=== PATIENT | female | born 1980 | race Caucasian/White ===

== ENCOUNTER 2020-06-08 16:17 | Emergency (ER) | payer OTHER, SELFPAY ==
[2020-06-08 16:35] VITALS: BP 132/89; PULSE 82; RESP 20; TEMP 36.7; O2SAT 100
--- NOTE | 2020-06-08 16:37 | ED.GENADULT ---
HPI - General Adult General Chief complaint: Animal Bite Stated complaint: dog bite Time Seen by Provider: 06/08/20 16:37 Source: patient and RN notes reviewed Mode of arrival: ambulatory Limitations: no limitations History of Present Illness HPI narrative: 39-year-old female presents with complaints of dog bite ([place]) to RT upper arm with ecchymosis, swelling, discomfort, and bloody drainage. prior to [facility] arrival today. No treatment. Several puncture wounds and a mild abrasion with discomfort, swelling, and redness. Radha says she was out visiting one of her neighbors when another one allowed their dog out that attacked hour (brown and white female dog). Denies tingling or numbness. Denies immobility. No exacerbating factors. No relieving factors. Denies altered sensation, back pain, neck pain, and suspected foreign body. Denies falling, hitting head, or loss of consciousness. Remains active. Tetanus vaccine up-to-date. Familiar with dog and transitional care nurse says shoots are up to date per transitional care nurse when she spoke with prior to arrival. LMP, today which is irregular due to IUD control. The patient reports she have not been diagnosed with COVID-19. The patient reports she is not waiting for the results of a COVID-19 lab test. The patient reports she do not have fever, chills, weakness, fatigue, or myalgia. The patient reports she do not have a new or worsening cough or shortness of breath. Denies chest pain. The patient reports she do not have any rhinorrhea, congestion, sore throat, nausea, vomiting, abdominal pain, and diarrhea. Tolerating po intake well. Denies recent traveling. Denies concerns for COVID-19 or exposures been home with limited outdoor exposure except for essential household needs, work, and return home. At this time, patient is not suspected of having COVID-19. Some parts of this dictation were generated by voice recognition software and may contain typographical and/or grammatical inaccuracies. Related Data Allergies Allergy/AdvReac Type Severity Reaction Status Date / Time pistachio nut Allergy Unknown Verified 09/16/18 12:23 Review of Systems Review of Systems: Narrative: CONSTITUTIONAL: Denies fever, chills, sweats. EYES: Denies visual changes, redness, discharge. ENT: Denies rhinorrhea, congestion, sore throat, otalgia. CARDIOVASCULAR: Denies chest pain, palpitations, edema. RESPIRATORY: Denies dyspnea, wheezing, cough. GASTROINTESTINAL: Denies abdominal pain, nausea, vomiting, diarrhea. GENITOURINARY: Denies dysuria, hematuria, abnormal discharge. SKIN: Denies rash or itching. Complains of a dog bite to RT upper arm with several puncture wounds and mild abrasion, ecchymosis, swelling, discomfort, and bloody drainage. MUSCULOSKELETAL: Denies acute back pain, joint pain, or myalgia. NEUROLOGIC: Denies numbness or focal weakness. PSYCHIATRIC: Denies anxiety or depression. All other systems reviewed are negative, except as documented in HPI and below. [facility] Past Medical History Medical History (Updated 06/09/20 @ 00:00 by Claudio Alberts) delivery delivered Preeclampsia with her 2016 Surgical History Surgical History (Updated 06/08/20 @ 17:07 by ROSINA Landers) H/O section History of loop electrosurgical excision procedure (LEEP) Family History Family History (Updated 06/08/20 @ 17:07 by ROSINA Landers) Father Hypertension Family history of diabetes mellitus in first degree relative Sibling Patient's sister is in good health Mother Hypertension Social History Social History (Updated 06/08/20 @ 17:07 by ROSINA Landers) Smoking status: Never smoker Second hand tobacco smoke exposure: No Alcohol intake: current Substance use: current Substance use type: marijuana Living arrangements: with family Occupation/Education: occupation Gender identity (if verbalized by the patient): Female Sex
== END 2020-06-08 17:08 | disposition home or self-care (01) ==
PROVIDERS: Emergency Provider Nurse Practitioner Family; PCP Physician Assistant
DX: S41.151A Open bite of right upper arm, initial encounter (principal); W54.0XXA Bitten by dog, initial encounter
CPT/HCPCS: 99213; G0463

== ENCOUNTER 2021-03-22 10:15 | Outpatient (CLI) | payer OTHER, SELFPAY ==
[2021-03-22 07:40] LABS: Alanine Aminotransferase 13 U/L (4-35); Albumin Level 4.3 g/dL (3.5-5.1); Alkaline Phosphatase 44 U/L (38-126); Anion Gap 6 mmol/L (8-16); Aspartate Amino Transferase 21 U/L (14-36); Bilirubin,Total 0.1 mg/dL (0.2-1.3); Blood Urea Nitrogen 8 mg/dL (7-17); Carbon Dioxide 26 mmol/L (22-30); Chloride 108 mmol/L (98-107); Cholesterol 153 mg/dL (0-200); Estimated Glomerular Filt Rate > 60; Glucose 96 mg/dL (65-105); HDL Direct 60 mg/dL; Sodium 140 mmol/L (137-145); Triglycerides 67 mg/dL (<150)
[2021-03-22 07:51] LABS: LDL Cholesterol Direct 73 mg/dL
[2021-03-22 08:22] LABS: Hematocrit 35.3 % (37.0-47.0); Hemoglobin 11.4 g/dL (12.0-15.0); Mean Corpuscular HGB Conc 32.3 g/dl (32-36); Mean Corpuscular Hemoglobin 26.7 pg (26-34); Mean Corpuscular Volume 82.7 fl (80-100); Mean Platelet Volume 10.7 fl (7.4-10.4); Platelet Count Result 252 k/mm3 (150-375); Red Blood Count 4.27 M/mm3 (4.2-5.4); Red Cell Distribution Width 15.1 % (11.5-14.5); White Blood Count 4.8 K/mm3 (4.5-10.0)
[2021-03-22 08:48] LABS: Folic Acid > 20.0 ng/mL (2.76->20)
== END 2021-03-22 10:16 | disposition home or self-care (01) ==
PROVIDERS: PCP Internal Medicine; Visit Provider Physician Assistant
DX: Z00.00 Encounter for general adult medical examination without abnormal findings (principal)
CPT/HCPCS: 36415; 80053; 80061; 82607; 82746; 83540; 83550; 84443; 85027

== ENCOUNTER 2022-04-05 09:09 | Outpatient (CLI) | payer OTHER, SELFPAY ==
[2022-04-05 09:21] LABS: Hematocrit 42.6 % (37.0-47.0); Hemoglobin 13.9 g/dL (12.0-15.0); Mean Corpuscular HGB Conc 32.6 g/dl (32-36); Mean Corpuscular Hemoglobin 33.2 pg (26-34); Mean Corpuscular Volume 101.7 fl (80-100); Mean Platelet Volume 9.7 fl (7.4-10.4); Platelet Count Result 224 k/mm3 (150-375); Red Blood Count 4.19 M/mm3 (4.2-5.4); Red Cell Distribution Width 12.3 % (11.5-14.5); White Blood Count 4.2 K/mm3 (4.5-10.0)
[2022-04-05 09:53] LABS: Alanine Aminotransferase 14 U/L (6-35); Albumin Level 4.3 g/dL (3.5-5.1); Alkaline Phosphatase 48 U/L (38-126); Anion Gap 7 mmol/L (8-16); Aspartate Amino Transferase 23 U/L (14-36); Bilirubin,Total 0.5 mg/dL (0.2-1.3); Blood Urea Nitrogen 10 mg/dL (7-17); Calcium 8.8 mg/dL (8.4-10.2); Carbon Dioxide 24 mmol/L (22-30); Chloride 106 mmol/L (98-107); Cholesterol 164 mg/dL (0-200); Estimated Glomerular Filt Rate > 60; Glucose 91 mg/dL (65-110); HDL Direct 52 mg/dL; Potassium 4.3 mmol/L (3.4-5.0); Sodium 137 mmol/L (137-145); Triglycerides 67 mg/dL (<150)
[2022-04-05 10:03] LABS: LDL Cholesterol Direct 77 mg/dL
[2022-04-05 10:07] LABS: Iron 90 ug/dL (37-170)
[2022-04-05 10:20] LABS: Percent Iron Saturation 25 % (20-50)
[2022-04-05 11:02] LABS: Folic Acid > 20.0 ng/mL (2.76->20)
== END 2022-04-05 09:10 | disposition home or self-care (01) ==
LOC: ANHLAB 09:10
PROVIDERS: PCP Internal Medicine; Visit Provider Physician Assistant
DX: D64.9 Anemia, unspecified (principal); Z00.00 Encounter for general adult medical examination without abnormal findings
CPT/HCPCS: 36415; 80053; 80061; 82607; 82746; 83540; 83550; 84443; 85027

== ENCOUNTER 2023-04-09 07:06 | Outpatient (CLI) | payer OTHER, SELFPAY ==
[2023-04-09 07:55] LABS: Basophils Percent Auto 0.7 % (0.2-1.2); Eosinophils Absolute Auto 0.2 K/mm3 (0-0.3); Eosinophils Percent Auto 2.7 % (0-4.4); Hematocrit 40.9 % (37.0-47.0); Hemoglobin 13.9 g/dL (12.0-15.0); Immature Granulocyte Absolute 0.01 K/mm3 (0.00-0.031); Immature Granulocyte Percent A 0.2 % (0-0.5); Lymphocytes Absolute Auto 1.71 K/mm3 (0.9-3.2); Lymphocytes Percent Auto 31.3 % (18.3-44.2); Mean Corpuscular Hemoglobin 32.9 pg (26-34); Mean Corpuscular Volume 96.7 fl (80-100); Monocytes Absolute Auto 0.6 K/mm3 (0.1-0.6); Monocytes Percent Auto 10.8 % (2.6-8.5); Neutrophils Percent Auto 54.3 % (45.5-73.1); Platelet Count Result 230 k/mm3 (150-375); Red Blood Count 4.23 M/mm3 (4.2-5.4); Red Cell Distribution Width 12.6 % (11.5-14.5); White Blood Count 5.5 K/mm3 (4.5-10.0)
[2023-04-09 08:09] LABS: Alanine Aminotransferase 16 U/L (6-35); Albumin Level 4.1 g/dL (3.5-5.1); Alkaline Phosphatase 50 U/L (38-126); Anion Gap 6 mmol/L (8-16); Aspartate Amino Transferase 21 U/L (14-36); Bilirubin,Total 0.4 mg/dL (0.2-1.3); Blood Urea Nitrogen 9 mg/dL (7-17); Calcium 8.4 mg/dL (8.4-10.2); Carbon Dioxide 28 mmol/L (22-30); Chloride 103 mmol/L (98-107); Cholesterol 138 mg/dL (0-200); Estimated Glomerular Filt Rate > 60; Glucose 90 mg/dL (65-110); HDL Direct 43 mg/dL; Potassium 3.7 mmol/L (3.4-5.0); Sodium 137 mmol/L (137-145); Triglycerides 69 mg/dL (<150)
[2023-04-09 08:19] LABS: LDL Cholesterol Direct 73 mg/dL
[2023-04-09 09:10] LABS: Folic Acid 13.4 ng/mL (2.76->20)
== END 2023-04-09 07:07 | disposition home or self-care (01) ==
LOC: ANHLAB 07:07
PROVIDERS: PCP Physician Assistant; Visit Provider Physician Assistant
DX: Z00.00 Encounter for general adult medical examination without abnormal findings (principal)
CPT/HCPCS: 36415; 80053; 80061; 82607; 82746; 84443; 85025

== ENCOUNTER 2024-04-17 18:33 | Emergency (ER) | payer OTHER, SELFPAY ==
--- NOTE | 2024-04-17 18:35 | ED.SKABFB ---
HPI - Skin/Abscess/Foreign Bdy General Chief complaint: Skin/Abscess/Foreign Body Stated complaint: Tick Bite, Body Aches, Lethargic Time Seen by Provider: 04/17/24 18:34 Source: patient Mode of arrival: ambulatory Limitations: no limitations History of Present Illness HPI narrative: Ann is a 43-year-old female patient presenting to the clinic today with complaints of 2 tick to the left side that she noticed on Sunday. She did pull 1 tick off on Sunday. Is not aware of how long the ticks were in place but she does not think they were on longer 72 hours. Today she started experiencing fatigue, body aches, and feeling lethargic all day. Does not have an appetite. Is concerned that she may have an infection from the tick bite. Does report having a slight cough as well. No known fever or chills. Related Data Home Medications Medication Instructions Recorded Confirmed epinephrine 0.3 mg/0.3 mL 0.3 mg IM ONCE 04/06/20 04/17/24 injection, auto-injector (EpiPen 2-Ben) levonorgestrel 21 mcg/24 hr (up to 1 device intrauterine ONCE 04/06/20 04/17/24 8 years) 52 mg intrauterine device (Mirena) calcium carb,cit ER 600 mg-vit D3 2 tablet PO DAILY 04/17/24 04/17/24 12.5 mcg (500 unit) tablet,ext.rel (Citracal-D3 Slow Release) Allergies Allergy/AdvReac Type Severity Reaction Status Date / Time pistachio nut Allergy Severe Anaphylactic Verified 04/17/24 18:39 Shock Pistachio Allergy Unknown HIVES/SWELL Uncoded 04/17/24 18:39 ING Review of Systems Review of Systems: Pertinent positives per HPI. Patient denies any fever, chills, rash, headache, visual changes, dizziness, runny nose, sore throat, chest pain, palpitations, nausea, vomiting, diarrhea, constipation, abdominal pain, or any urinary issues. [facility] Past Medical History Medical History Abnormal Pap smear of cervix delivery delivered Encounter for IUD insertion 01/18/17 Mirena insertion Encounter for screening examination for sexually transmitted disease Preeclampsia with her 2016 Screening mammogram, encounter for Zygomatic fracture 2006--baseball injury Surgical History Surgical History H/O section 11/11/16 primary c/s--preeclampsia H/O LEEP 2005 abnormal pap History of gynecological procedure (03/13/22) mirena iud removal -out of place- reinsertion of new device History of loop electrosurgical excision procedure (LEEP) Family History Family History Father Hypertension Family history of diabetes mellitus in first degree relative Sibling Patient's sister is in good health Mother Hypertension Alzheimer's disease Grandparent Osteoporosis maternal grandmother Social History Social History Smoking status: Never smoker Second hand tobacco smoke exposure: No Alcohol intake: former Drinks per week: 14 Substance use: current Substance use type: marijuana Other substance usage details: daily for sleep Lack of Transportation: No Lack of Food: Never True Current Housing: I Have Housing Concerned About Future Housing: No Difficulty Paying Gas/Electric Bills: No Difficulty Paying for Meds: No Currently Unemployed: No Education: Master's Degree or Higher Difficulty w/ Childcare or Family Care: No Living arrangements: other Additional living arrangements comments: Occupation/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 There i
[2024-04-17 18:42] VITALS: BP 114/76; PULSE 97; RESP 16; TEMP 37.3; O2SAT 100
--- NOTE | 2024-04-17 18:49 | ECG_ITS ---
[facility] [address] Test Date: 2024-04-17 Pat Name: Radha Ziegler Department: Room: Gender: F Cardiopulmonary Specialist: Jean-Paul : 1980 Requested By: Janes Walters Order Number: [id number] Reading MD: Wilian Parham D.O. Measurements Intervals [place] Rate: 94 P: 35 MA: 158 QRS: 36 QRSD: 79 T: 42 QT: 340 QTc: 426 Interpretive Statements SINUS RHYTHM WITH FREQUENT VENTRICULAR PREMATURE COMPLEXES IN A BIGEMINAL PATTERN POSSIBLE LEFT ATRIAL ENLARGEMENT RSR' IN V1 OR V2, PROBABLY NORMAL VARIANT ABNORMAL ECG No previous ECG available for comparison Electronically Signed On 04-17-2024 21:16:35 CDT by Wilian Parham D.O.
== END 2024-04-17 19:09 | disposition short-term general hospital (02) ==
LOC: EXPGOSH 18:35
PROVIDERS: Emergency Provider Nurse Practitioner Family; PCP Physician Assistant
DX: R06.00 Dyspnea, unspecified (principal); R60.0 Localized edema; I49.3 Ventricular premature depolarization; S30.861A Insect bite (nonvenomous) of abdominal wall, initial encounter; W57.XXXA Bitten or stung by nonvenomous insect and other nonvenomous arthropods, initial encounter; F12.90 Cannabis use, unspecified, uncomplicated
CPT/HCPCS: 93005; 99213; G0463

== ENCOUNTER 2024-04-17 19:27 | Emergency (ER) | payer OTHER, SELFPAY ==
--- NOTE | ~2024-04-17 | XR_ITS ---
EXAMINATION: XR chest 1V portable Exam Date/Time: 04/17/2024 19:55 CDT HISTORY: dyspnea, BODYACHE, FATIGUE, CHILLS AND SHORT OF Comparison: None. RESULT: Lines, tubes, and devices: None. Lungs and pleura: Clear. Cardiomediastinal silhouette: Normal. Other: No acute osseous or upper abdominal finding. IMPRESSION: No acute cardiopulmonary process. Reviewed, dictated and finalized at location K.
[2024-04-17 19:34] VITALS: BP 119/71; PULSE 96; RESP 16; TEMP 36.9; O2SAT 98
[2024-04-17 19:45] VITALS: BP 120/74; PULSE 48; PULSE 51; RESP 18; RESP 20; O2SAT 100; O2SAT 98
--- NOTE | 2024-04-17 19:48 | ECG_ITS ---
[facility] [address] Test Date: 2024-04-17 Pat Name: Radha Ziegler Department: Room: Gender: F Carriage Feeder: Arturo : 1980 Requested By: Laz Sanchez Order Number: [id number] Reading MD: Wilian Parham D.O. Measurements Intervals [place] Rate: 84 P: 9 AR: 165 QRS: 32 QRSD: 78 T: 29 QT: 353 QTc: 418 Interpretive Statements SINUS RHYTHM VENTRICULAR TRIGEMINY ABNORMAL ECG No previous ECG available for comparison Electronically Signed On 04-18-2024 08:29:32 CDT by Wilian Parham D.O.
--- NOTE | 2024-04-17 19:49 | ED.GENADULT ---
HPI - General Adult General Chief complaint: Unspecified Stated complaint: fatigue, sob Time Seen by Provider: 04/17/24 19:35 Source: patient Mode of arrival: ambulatory Limitations: no limitations History of Present Illness HPI narrative: This is a 43-year-old female who presents to the ED for evaluation of generalized fatigue and body aches. She was referred by urgent care. Patient states that she pulled a tick off of her left side 4 days ago had been feeling fine up until today. Patient reports that she has some shortness of breath with exertion and feeling generally weak. Denies fevers, chest pain, cough, abdominal pain, nausea, vomiting, headache, syncope. Denies any significant rash other than the bite diana lesions. Urgent Care report there was concern for possible bigeminy on the EKG there. They reported her to be further evaluated for the shortness of breath and constitutional symptoms. States she has never been told about bigeminy before. Related Data Home Medications Medication Instructions Recorded Confirmed epinephrine 0.3 mg/0.3 mL 0.3 mg IM ONCE 04/06/20 04/17/24 injection, auto-injector (EpiPen 2-Ben) levonorgestrel 21 mcg/24 hr (up to 1 device intrauterine ONCE 04/06/20 04/17/24 8 years) 52 mg intrauterine device (Mirena) calcium carb,cit ER 600 mg-vit D3 2 tablet PO DAILY 04/17/24 04/17/24 12.5 mcg (500 unit) tablet,ext.rel (Citracal-D3 Slow Release) Allergies Allergy/AdvReac Type Severity Reaction Status Date / Time pistachio nut Allergy Severe Anaphylactic Verified 04/17/24 18:39 Shock Pistachio Allergy Unknown HIVES/SWELL Uncoded 04/17/24 18:39 ING Review of Systems Review of Systems: All systems as dictated in [facility] Past Medical History Medical History Abnormal Pap smear of cervix delivery delivered Encounter for IUD insertion 01/18/17 Mirena insertion Encounter for screening examination for sexually transmitted disease Preeclampsia with her 2016 Screening mammogram, encounter for Zygomatic fracture 2006--baseball injury Surgical History Surgical History H/O section 11/11/16 primary c/s--preeclampsia H/O LEEP 2005 abnormal pap History of gynecological procedure (03/13/22) mirena iud removal -out of place- reinsertion of new device History of loop electrosurgical excision procedure (LEEP) Family History Family History Father Hypertension Family history of diabetes mellitus in first degree relative Sibling Patient's sister is in good health Mother Hypertension Alzheimer's disease Grandparent Osteoporosis maternal grandmother Social History Social History Smoking status: Never smoker Second hand tobacco smoke exposure: No Alcohol intake: former Drinks per week: 14 Substance use: current Substance use type: marijuana Other substance usage details: daily for sleep Lack of Transportation: No Lack of Food: Never True Current Housing: I Have Housing Concerned About Future Housing: No Difficulty Paying Gas/Electric Bills: No Difficulty Paying for Meds: No Currently Unemployed: No Education: Master's Degree or Higher Difficulty w/ Childcare or Family Care: No Living arrangements: other Additional living arrangements comments: 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 HEAD: Normocephalic, atraumatic. EYES: PERRLA and EOMI. ENT: Nares clear, no rhinorrhea or ep
[2024-04-17 20:21] LABS: Basophils Percent Auto 0.4 % (0.2-1.2); Eosinophils Percent Auto 0.4 % (0-4.4); Hematocrit 40.1 % (37.0-47.0); Hemoglobin 13.5 g/dL (12.0-15.0); Immature Granulocyte Absolute 0.02 K/mm3 (0.00-0.031); Immature Granulocyte Percent A 0.4 % (0-0.5); Lymphocytes Absolute Auto 0.94 K/mm3 (0.9-3.2); Lymphocytes Percent Auto 18.7 % (18.3-44.2); Mean Corpuscular HGB Conc 33.7 g/dl (32-36); Mean Corpuscular Hemoglobin 32.8 pg (26-34); Mean Corpuscular Volume 97.6 fl (80-100); Mean Platelet Volume 9.9 fl (7.4-10.4); Monocytes Absolute Auto 0.6 K/mm3 (0.1-0.6); Monocytes Percent Auto 11.3 % (2.6-8.5); Neutrophils Absolute Auto 3.5 K/mm3 (1.3-6.7); Neutrophils Percent Auto 68.8 % (45.5-73.1); Platelet Count Result 212 k/mm3 (150-375); Red Blood Count 4.11 M/mm3 (4.2-5.4); Red Cell Distribution Width 12.9 % (11.5-14.5)
[2024-04-17 20:30] VITALS: PULSE 94; RESP 18; O2SAT 100
[2024-04-17 20:38] LABS: Alanine Aminotransferase 14 U/L (6-35); Albumin Level 4.4 g/dL (3.5-5.1); Alkaline Phosphatase 57 U/L (38-126); Anion Gap 6 mmol/L (4-12); Aspartate Amino Transferase 22 U/L (14-36); Bilirubin,Total 0.7 mg/dL (0.2-1.3); Blood Urea Nitrogen 4 mg/dL (7-17); Carbon Dioxide 22 mmol/L (22-30); Chloride 108 mmol/L (98-107); Estimated CRCL calculation 107 ml/min; Estimated Glomerular Filt Rate > 60; Glucose 111 mg/dL (65-110); Potassium 3.3 mmol/L (3.4-5.0); Sodium 136 mmol/L (137-145)
[2024-04-17 20:44] LABS: Magnesium 1.8 mg/dL (1.6-2.3)
[2024-04-17 20:50] LABS: NT Pro B Type Natriuretic Pept 90 pg/mL (19.9-100); Troponin I < 0.012 ng/mL (0.000-0.034)
[2024-04-17] MEDS: DOXYCYCLINE HYCLATE 100 MG TABLET PO (21:30)
[2024-04-21 15:33] LABS: Lyme Disease Ab (IgM), Blot NEGATIVE (NEGATIVE); Lyme Disease Ab(IgG), Blot NEGATIVE (NEGATIVE)
== END 2024-04-17 21:31 | disposition home or self-care (01) ==
PROVIDERS: Emergency Provider Physician Assistant; PCP Physician Assistant
DX: S30.861A Insect bite (nonvenomous) of abdominal wall, initial encounter (principal); I49.3 Ventricular premature depolarization; Z97.5 Presence of (intrauterine) contraceptive device; W57.XXXA Bitten or stung by nonvenomous insect and other nonvenomous arthropods, initial encounter
CPT/HCPCS: 36415; 71045; 80053; 83735; 83880; 84443; 84484; 85025; 86617; 93005; 99284; A9270

== ENCOUNTER 2024-04-24 10:57 | Outpatient (CLI) | payer OTHER, SELFPAY ==
--- NOTE | 2024-04-28 14:51 | WPDHOLTEREM ---
Holter/Event Monitor Holter/Event Monitor Date of procedure: 04/24/24 Holter/Event Procedure: 48 Hr Holter Monitor Indications: Cardiac arrhythmia Conclusion: 1. 48 hour holter monitor on 04/24/24. 2. Underlying rhythm is sinus rhythm. HR range 54-126 bpm; average HR 80 bpm. 3. There are 7 premature supraventricular complexes. No supraventricular tachycardia. 4. There are 544 premature ventricular complexes, 139 ventricular bigeminy and 4 ventricular trigeminy. No ventricular tachycardia. 5. No sinoatrial or atrioventricular blocks. No significant pauses greater than 2 seconds. 6. No symptoms available for correlation.
== END 2024-04-24 10:58 | disposition home or self-care (01) ==
LOC: ANHCARD 10:58
PROVIDERS: PCP Physician Assistant; Visit Provider Physician Assistant
DX: I49.8 Other specified cardiac arrhythmias (principal)
CPT/HCPCS: 93225; 93226

== ENCOUNTER 2024-05-02 07:14 | Outpatient (CLI) | payer OTHER, SELFPAY ==
[2024-05-02 08:04] LABS: Basophils Percent Auto 0.7 % (0.2-1.2); Eosinophils Absolute Auto 0.1 K/mm3 (0-0.3); Eosinophils Percent Auto 1.2 % (0-4.4); Hemoglobin 13.6 g/dL (12.0-15.0); Immature Granulocyte Absolute 0.01 K/mm3 (0.00-0.031); Immature Granulocyte Percent A 0.2 % (0-0.5); Lymphocytes Absolute Auto 1.35 K/mm3 (0.9-3.2); Lymphocytes Percent Auto 33.5 % (18.3-44.2); Mean Corpuscular HGB Conc 33.2 g/dl (32-36); Mean Corpuscular Hemoglobin 32.2 pg (26-34); Mean Corpuscular Volume 97.2 fl (80-100); Mean Platelet Volume 10.1 fl (7.4-10.4); Monocytes Absolute Auto 0.4 K/mm3 (0.1-0.6); Monocytes Percent Auto 10.2 % (2.6-8.5); Neutrophils Absolute Auto 2.2 K/mm3 (1.3-6.7); Neutrophils Percent Auto 54.2 % (45.5-73.1); Platelet Count Result 234 k/mm3 (150-375); Red Blood Count 4.22 M/mm3 (4.2-5.4)
[2024-05-02 08:28] LABS: Alanine Aminotransferase 15 U/L (6-35); Albumin Level 4.5 g/dL (3.5-5.1); Alkaline Phosphatase 47 U/L (38-126); Anion Gap 8 mmol/L (4-12); Aspartate Amino Transferase 23 U/L (14-36); Bilirubin,Total 0.7 mg/dL (0.2-1.3); Blood Urea Nitrogen 10 mg/dL (7-17); Calcium 9.1 mg/dL (8.4-10.2); Carbon Dioxide 27 mmol/L (22-30); Chloride 106 mmol/L (98-107); Cholesterol 155 mg/dL (0-200); Estimated Glomerular Filt Rate > 60; Glucose 86 mg/dL (65-110); HDL Direct 47 mg/dL; Potassium 3.9 mmol/L (3.4-5.0); Sodium 141 mmol/L (137-145); Triglycerides 76 mg/dL (<150)
[2024-05-02 08:39] LABS: LDL Cholesterol Direct 86 mg/dL
[2024-05-02 08:51] LABS: Iron 111 ug/dL (37-170)
[2024-05-02 08:59] LABS: Thyroid Stimulating Hormone 0.895 uIU/mL (0.465-4.680)
[2024-05-02 09:02] LABS: Percent Iron Saturation 31 % (20-50)
[2024-05-02 09:36] LABS: Folic Acid > 20.0 ng/mL (2.76->20)
== END 2024-05-02 07:15 | disposition home or self-care (01) ==
LOC: ANHLAB 07:15
PROVIDERS: PCP Physician Assistant; Visit Provider Physician Assistant
DX: D64.9 Anemia, unspecified (principal); Z00.00 Encounter for general adult medical examination without abnormal findings
CPT/HCPCS: 36415; 80053; 80061; 82607; 82728; 82746; 83540; 83550; 84443; 85025

== ENCOUNTER 2024-06-06 08:02 | Outpatient (CLI) | payer OTHER, SELFPAY ==
--- NOTE | 2024-06-06 08:07 | EST_ITS ---
Patient Info Name: Radha Ziegler Age: 43 years : 1980 Gender: Female Ht: 69 in Wt: 155 lbs BSA: 1.85 m2 HR: 71 bpm BP: 119 / 82 mmHg Exam Date: 06/06/2024 8:14 AM Exam Location: Echo Lab Patient Status: Outpatient Admit Date: 06/06/2024 Staff Ordering Physician: Wilian Brooks DO Attending Provider: DR. BROOKS Exercise Technologist: Yolie Lange [facility] Exercise Physician: Wilian Brooks DO Exam Type: CA stress test treadmill Study Info An exercise stress test was performed. Summary 1. 1. Negative Santiago exercise stress test for ischemic ST changes by ECG criteria. 2. 2. Good functional capacity, achieving 10 METs of workload. 3. 3. Appropriate HR response to exercise. 4. 4. Appropriate HR recovery at 1 minute post exercise. 5. 5. No imaging with stress testing. 6. 6. Patient informed of the above results. Protocol: Santiago Stress ECG Details Stage: REST Duration (min): 2 min : 7 sec Speed (mph): 0.0 Grade (%): 0 HR (bpm): 77 SBP (mmHg): 119 DBP (mmHg): 82 METS: --- Stage: REST Duration (min): 9 min : 11 sec Speed (mph): 0.0 Grade (%): 0 HR (bpm): 90 SBP (mmHg): 119 DBP (mmHg): 82 METS: --- Stage: STAGE 1 Duration (min): 1 min : 0 sec Speed (mph): 1.7 Grade (%): 10 HR (bpm): 104 SBP (mmHg): 119 DBP (mmHg): 82 METS: --- Stage: STAGE 1 Duration (min): 2 min : 0 sec Speed (mph): 1.7 Grade (%): 10 HR (bpm): 114 SBP (mmHg): 119 DBP (mmHg): 82 METS: --- Stage: STAGE 1 Duration (min): 3 min : 0 sec Speed (mph): 1.7 Grade (%): 10 HR (bpm): 122 SBP (mmHg): 135 DBP (mmHg): 82 METS: --- Stage: STAGE 2 Duration (min): 1 min : 0 sec Speed (mph): 2.5 Grade (%): 12 HR (bpm): 131 SBP (mmHg): 135 DBP (mmHg): 82 METS: --- Stage: STAGE 2 Duration (min): 2 min : 0 sec Speed (mph): 2.5 Grade (%): 12 HR (bpm): 141 SBP (mmHg): 146 DBP (mmHg): 79 METS: --- Stage: STAGE 2 Duration (min): 3 min : 0 sec Speed (mph): 2.5 Grade (%): 12 HR (bpm): 145 SBP (mmHg): 146 DBP (mmHg): 79 METS: --- Stage: STAGE 3 Duration (min): 1 min : 0 sec Speed (mph): 3.4 Grade (%): 14 HR (bpm): 150 SBP (mmHg): 151 DBP (mmHg): 78 METS: --- Stage: STAGE 3 Duration (min): 2 min : 0 sec Speed (mph): 3.4 Grade (%): 14 HR (bpm): 149 SBP (mmHg): 151 DBP (mmHg): 78 METS: --- Stage: STAGE 3 Duration (min): 3 min : 0 sec Speed (mph): 3.4 Grade (%): 14 HR (bpm): 157 SBP (mmHg): 144 DBP (mmHg): 87 METS: --- Stage: RECOVERY Duration (min): 0 min : 59 sec Speed (mph): 0.0 Grade (%): 0 HR (bpm): 127 SBP (mmHg): 144 DBP (mmHg): 87 METS: --- Stage: RECOVERY Duration (min): 1 min : 59 sec Speed (mph): 0.0 Grade (%): 0 HR (bpm): 104 SBP (mmHg): 144 DBP (mmHg): 87 METS: --- Stage: RECOVERY Duration (min):
== END 2024-06-06 08:03 | disposition home or self-care (01) ==
PROVIDERS: PCP Physician Assistant; Visit Provider Internal Medicine Cardiovascular Disease
DX: R07.9 Chest pain, unspecified (principal)
CPT/HCPCS: 93017

== ENCOUNTER 2025-02-17 11:53 | Outpatient (CLI) | payer OTHER, SELFPAY ==
--- NOTE | ~2025-02-17 | MM_ITS ---
EXAMINATION: MM screening [facility] BI w yuli HISTORY: Screening TECHNIQUE: Craniocaudal and mediolateral oblique 3-D tomosynthesis images were obtained and synthetic 2-D images were generated. CAD analysis was submitted and interpreted. COMPARISON: Comparison to multiple prior studies sequentially, with oldest reviewed study dated 08/04. BREAST PARENCHYMAL COMPOSITION: Dense: The breasts are extremely dense, which lowers the sensitivity of mammography. FINDINGS: There is an obscured mass in the lateral aspect of the right breast posterior third. There is a radiolucent mass obscured in the lateral aspect of the left breast, posterior third. There are n o suspicious calcifications or architectural distortion. IMPRESSION: 1. Bilateral breast masses laterally on CC views, posterior third. 2. Additional mammographic views and possible breast ultrasound are recommended. BI-RADS Category 0: Incomplete: Needs additional imaging evaluation. Reviewed, dictated and finalized at location A. IMPRESSION: 1. Bilateral breast masses laterally on CC views, posterior third. 2. Additional mammographic views and possible breast ultrasound are recommended . BI-RADS Category 0: Incomplete: Needs additional imaging evaluation.
== END 2025-02-17 11:54 | disposition home or self-care (01) ==
LOC: MICIMG 11:54
PROVIDERS: PCP Nurse Practitioner; Visit Provider Obstetrics & Gynecology
DX: Z12.31 Encounter for screening mammogram for malignant neoplasm of breast (principal); N63.20 Unspecified lump in the left breast, unspecified quadrant; N63.10 Unspecified lump in the right breast, unspecified quadrant
CPT/HCPCS: 77063; 77067

== ENCOUNTER 2025-03-06 08:20 | Outpatient (CLI) | payer OTHER, SELFPAY ==
--- NOTE | ~2025-03-06 | MMUS_ITS ---
EXAMINATION: MM diagnostic [facility] BI w yuli, US breast BI complete HISTORY: Follow-up breast asymmetries TECHNIQUE: Additional 3-D tomosynthesis images of the breasts were performed and synthetic 2-D images were generated. CAD analysis was submitted and interpreted. High resolution bilateral complete breas t ultrasound was performed. COMPARISON: Comparison to multiple prior studies sequentially, with oldest reviewed study dated 08/04. BREAST PARENCHYMAL COMPOSITION: Dense: The breasts are extremely dense, which lowers the sensitivity of mammography. FINDINGS: MAMMOGRAPHIC FINDINGS: There are no suspicious masses, calcifications or architectural distortion in either breast to sugges t malignancy. Bilateral breast asymmetries are less apparent with spot compression views. ULTRASOUND: Complete US of all 4 quadrants of the breast/s and retroareolar region was reviewed. There are bilate ral breast cysts. In the right breast at 11:00, 3 cm from the nipple there is a 5 mm cyst. In the lef t breast at 2:00, 5 cm from the nipple there is a septated 1.2 cm cyst. At 3:00, 6 cm from the nipple there is a 6 mm cyst. IMPRESSION: 1. No evidence for malignancy in either breast. Benign findings. 2. Routine yearly screening mammogram and regular clinical breast examination are recommended. BI-RADS Category 2: Benign finding(s). Reviewed, dictated and finalized at location B. IMPRESSION: 1. No evidence for malignancy in either breast. Benign findings. 2. Routine yearly screening mammogram and regular clinical breast examination a re recommended. BI-RADS Category 2: Benign finding(s).
== END 2025-03-06 08:21 | disposition home or self-care (01) ==
LOC: MICIMG 08:21
PROVIDERS: PCP Nurse Practitioner; Visit Provider Obstetrics & Gynecology
DX: N63.10 Unspecified lump in the right breast, unspecified quadrant (principal); N63.20 Unspecified lump in the left breast, unspecified quadrant
CPT/HCPCS: 76641; 77062; 77066; G0279

== ENCOUNTER 2025-05-27 07:15 | Outpatient (CLI) | payer OTHER, SELFPAY ==
--- OUTSIDE RECORDS SUMMARY | 2025-05-27 07:19 | XMS_ITS | Patient Health Record ---
Author Organization [facility] [employer] Address [address] [place] [address] Care Team Providers Care Packing Clerk Name Role Phone Robert Jabari MARX Primary Care Provider UnavailNorma Barrera Unavailable [phone] Jose Alejandro Martinez Unavailable [phone] Roselia Tavares Unavailable [phone] Gumaro Figueredo Unavailable [phone] Allergies Allergen (clinical drug ingredient) Drug/Non Drug Allergy documented on EMR Reaction Allergy Type Onset Date Status pistachio nut allergenic extract Pistachio (uncoded) Unknown Allergy Ac tive pistachio nut allergenic extract Pistachio Nut (Diagnostic) Unknown Drug Allergy Active Results Component Value Reference Range Notes UDT Reviewed date:07/04/2024 03:19:54 PM Interpretation: Performing Lab: Notes/Report: THC N 0 - 50 ng/ml Cocaine N 0 - 300 ng/ml Amphetamine N 0 - 1000 ng/ml Buprenorphine (BUP) N 0 - 10 ng/ml Secobarbital (Bar) N 0 - 300 ng/ml Oxazepam (BZO) N 0 - 300 ng/ml 6-nckdczilzk-5,3-ljpcrymc-2,3-diphenylpyrrolidine (MAILE P) N 0 - 300 ng/ml Methamphetamine (MET) N 0 - 1000 ng/ml Methylenedioxymethamphetamine (MDMA) N 0 - 500 ng/ml Morphine (MOP 300/[id number]) N 0 - 300 ng/ml Methadone (MTD) N 0 - 300 ng/ml Phencyclidine (PCP) N 0 - 25 ng/ml Nortriptyline (TCA) N 0 - 1000 ng/ml Oxycodone N 0 - 300 ng/ml x N 0 - 300 ng/ml Reason For Referral No Information Medications Medication SIG (Take, Route, Frequency, Duration) Notes Start Date End Date Status Vestura 3-0.02 MG 1 tablet Orally Once a day Active Magnesium Gluconate Active Escitalopram Oxalate 10 MG 0.5 tablet once a day for 6 days, 1 tablet once a day for 24 days Oral; Duration: 30 days cut in half for her if able thank you 05/06/2025 Active Social History Tobacco Use: Social History Observation Description Date Details (start date - stop date) Never Smoker NA - NA Sex Assigned At : Social History Observation Description Sex Assigned At Female Tobacco Control (Standard) Question Answer Notes Tobacco use: Nonsmoker AUDIT-C (Standard) Question Answer Notes Did you have a drink contain ing alcohol in the past year? Yes How often did you have six o r more drinks on one occasion in the past year? Never (0 point) How many drinks did you have on a typical day when you were drinking in the past year? 1 or 2 drinks (0 point) How often did you have a dri nk containing alcohol in the past year? 2 to 3 times a week (3 points) Problems Problem Type SNOMED Code ICD Code Onset Dates Problem Status W/U Status Risk Notes Problem Mild recurrent major depression (79764941) Major depressive disorder, recurrent, mild (F33.0) Active confirmed Problem Recurrent major depression in full remission (20800452) Major depressive disorder, recurrent, in full remission (F33.42) Active confirmed Problem Generalized anxiety disorder (05770084) Generalized anxiety disorder (F41.1) Active confirmed Problem Chronic insomnia (145676957) Chronic insomnia (F51.04) Active confirmed Problem Mild major depression, single episode (49258850) Current mild episode of major depressive disorder without prior episode (F32.0) Active confirmed Vital Signs Heart Rate 80 /min 05/06/2025 Height-cm 175.26 cm 05/06/2025 Blood pressure diastolic 82 mm Hg 05/06/2025 Weight-kg 74.39 kg 05/06/2025 Height 69 in 05/06/2025 Blood pressure systolic 121 mm Hg 05/06/2025 Weight 164 lbs 05/06/2025 BMI 24.22 kg/m2 05/06/2025 Encounters Encounter Location Date Provider Diagnosis [facility] [employer] [facility] [address] [facility] [address] [place] [address] 07/04/2024 Roselia Tavares Major depressive disorder, single episode, moderate F32.1 ; Generalized anxiety disorder F41.1 and Chronic insomnia F51.04 [facility] [employer] [facility], [employer] [address] [place] [address] 07/18/2024 Gumaro Figueredo Generalized anxiety disorder F41.1 ; Current mild episode of major depressive disorder without prior episode F32.0 and Chronic insomnia F51.04 [facility] [employer] [facility] [address] [facility] [address] [place] [address] 08/01/2024 Jose Alejandro Martinez Major depressive disorder, single episode, mild F32.0 and Anxiety disorder, unspecified type F41.9 [facility] [employer] [facility] [address] [address] 08/11/2024 Jose Alejandro Martinez Major depressive disorder, single episode, mild F32.0 and Anxiety disorder, unspecified F41.9 [facility] [employer] [facility] [address] [address] 08/28/2024 Jose Alejandro Martinez Current mild episode of major depressive disorder without prior episode F32.0 and Anxiety disorder, unspecified type F41.9 [facility] [employer] [facility] [address] [address] 09/11/2024 Jose Alejandro Martinez Current mild episode of major depressive disorder without prior episode F32.0 and Anxiety disorder, unspecified F41.9 [facility] [employer] [facility] [address] [place] [address] 09/25/2024 Jose Alejandro Martinez Current mild episode of major depressive disorder without prior episode F32.0 and Anxiety disorder, unspecified type F41.9 [facility] [employer] [facility] [address] [place] [address] 10/14/2024 Jose Alejandro Martinez Mild major depressio n, single episode F32.0 and Anxiety disorder, unspecified type F41.9 [facility] [employer] [facility] [address] [place] [address] 01/01/2025 Jose Alejandro Martinez Mild major depressio n, single episode F32.0 and Generalized anxiety disorder F41.1 [place] [address] [place] [address] 01/05/2025 Norma Willis Current mild episode of major depressive disorder without prior episode F32.0 ; Generalized anxiety disorder F41.1 ; Chronic insomnia F51.04 and Encounter for screening for cardiovascular disorders Z13.6 [place] [address] [place] [address] 02/04/2025 Jose Alejandro Martinez Encounter for screening for depression Z13.31 ; Mild major depression, single episode F32.0 and Generalized anxiety disorder F41.[address] [facility] [address] [place] [address] 02/23/2025 Jose Alejandro Martinez Encounter for screening for depression Z13.31 ; Mild major depression, single episode F32.0 and Generalized anxiety disorder F41.[address] [facility] [address] [place] [address] 04/03/2025 Norma Willis Generalized anxiety disorder F41.1 ; Major depressive disorder, recurrent, in full remission F33.42 ; Chronic insomnia F51.04 ; Encounter for screening for cardiovascular disorders Z13.6 and Negative depression screening Z13.31 [place] [address] [facility] [address] [place] [address] 05/06/2025 oNrma Willis Generalized anxiety disorder F41.1 ; Major depressive disorder, recurrent, mild F33.0 ; Chronic insomnia F51.04 ; Encounter for screening for depression Z13.31 and Encounter for screening for cardiovascular disorders Z13.6 [place] [address] [place] [address] 07/04/2024 Roselia Tavares [place] [address] [place] [address] 08/11/2024 Roselia Tavares Current mild episode of major depressive disorder without prior episode F32.0 [place] [address] [place] [address] 11/24/2024 [place] [address] [place] [address] 12/02/2024 Normabrett Willis [facility], [facility] [address] [address] 01/22/2025 [place] [address] [address] 04/25/2025 Norma Willis Major depressive disorder, recurrent, in full remission F33.42 [facility], [facility] [address] [address] 04/25/2025 Normabrett Willis Major depressive disorder, recurrent, in full remission F33.42 [facility], [facility] [address] [address] 04/29/2025 Normabrett Willis Major depressive disorder, recurrent, in full remission F33.42 [facility], [facility] [address] [address] 05/05/2025 [facility] [place] [address] [address] 05/06/2025 Normabrett Willis [facility], [place] [address] [address] 05/06/2025 [facility] [address] [address] 05/06/2025 [facility] [place] [address] [address] 05/12/2025 Norma Willis Assessments Encounter Date Diagnosis (ICD Code) Assessment Notes Treatment Notes Treatment Clinical Notes Section Notes 07/04/2024 Major depressive disorder, single episode, moderate (ICD-10 - F32.1) cont celexa 20mg daily refer to therapy MDD-single, IRENE, chronic insomnia worse with recent life stressors medication already helping with irritable UDS neg occasional cannabis, alcohol; minimize and why discuss dx and tx consideration, just started SSRI, and seems to be helping. will cont at current dose as only on 3 wks. review r/b/se. Sleep discuss medication options, melatonin, magnesium, calm aid, or wait on SSRI effect. She may try a natural option discussed, wants to avoid a script currently also recommend therapy, refer here, office will contact, reviewed no show policy BP 140/103-anxious, reports not generally high, denies sx f/u in 2-3 wks, earlier if concerns 07/04/2024 Generalized anxiety disorder (ICD-10 - F41.1) SSRI, refer to therapy 07/18/2024 Generalized anxiety disorder (ICD-10 - F41.1) - Mental Status Examination: - Depression rated at 4/10. - Anxiety rated at 0/10. - No thoughts of suicide or self-harm reported. - Sleeps approximately 7-8 hours per night. 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 - No delusions, paranoia, or hallucinations reported. - She reports feeling less sad, less self-conscious about appearance, and experiencing fewer mood swings. - She reports not feeling easily angered as in the past. - She describes feeling goal-oriented but having difficulty with long-term planning. - She reports racing thoughts at night, improved with magnesium glycinate. - She notes taking longer to get out of bed in the morning. 01/05/2025 Current mild episode of major depressive disorder without prior episode (ICD-10 - F32.0) Depression and Anxiety - Stable Plan: - Continue citalopram 20 mg daily - Reassess at end of semester, discussed potential to decrease if she feels well at this time Insomnia - Currently sleeping well Plan: - Continue OTC magnesium - Practice good sleep hygiene - Schedule follow-up appointment in three months, sooner if concerns arise 02/04/2025 Encounter for screening for depression (ICD-10 - Z13.31) 44year old female seen today for initial assessment to start indiividual psychotherapy. Reported that she has seen Shikha for medication to treat depression and anxiety symptoms she has been experiencing for the past year or so. Denied hx of both but was started on an anti-dpressant by her PCP who referred her here for medication and therapy. Client shared that she has been estranged from bio father for the past year and mother is hospice care and not expected to live much longer. possibly 6 weeks. Noted that mother has been in facility due to suffering frm dementia. Stated that she has not been her best self and has found self being short and inpatient with 7 year old son due to problems with father (his new girlfriend and one sister). Client added that father has refused to speak with her without the presence of an compliance attorney. Client born and grew up [place], [place] and described her childhood as really good. Stated that she was a happy child growing up. 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 She is one of three, two sisters. Added that she has not spoken to middle sister in several months. 02/04/2025 Mild major depression, single episode (ICD-10 - F32.0) 44year old female seen today for initial assessment to start indiividual psychotherapy. Reported that she has seen Shikha for medication to treat depression and anxiety symptoms she has been experiencing for the past year or so. Denied hx of both but was started on an anti-dpressant by her PCP who referred her here for medication and therapy. Client shared that she has been estranged from bio father for the past year and mother is hospice care and not expected to live much longer. possibly 6 weeks. Noted that mother has been in facility due to suffering frm dementia. Stated that she has not been her best self and has found self being short and inpatient with 7 year old son due to problems with father (his new girlfriend and one sister). Client added that father has refused to speak with her without the presence of an compliance attorney. Client born and grew up [place], [place] and described her childhood as really good. Stated that she was a happy child growing up. 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 She is one of three, two sisters. Added that she has not spoken to middle sister in several months. 02/23/2025 Encounter for screening for depression (ICD-10 - Z13.31) 44year old female seen today for initial assessment to start indiividual psychotherapy. Reported that she has seen Shikha for medication to treat depression and anxiety symptoms she has been experiencing for the past year or so. Denied hx of both but was started on an anti-dpressant by her PCP who referred her here for medication and therapy. Client shared that she has been estranged from bio father for the past year and mother is hospice care and not expected to live much longer. possibly 6 weeks. Noted that mother has been in facility due to suffering frm dementia. Stated that she has not been her best self and has found self being short and inpatient with 7 year old son due to problems with father (his new girlfriend and one sister). Client added that father has refused to speak with her without the presence of an compliance attorney. Client born and grew up [place], [place] and described her childhood as really good. Stated that she was a happy child growing up. 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 She is one of three, two sisters. Added that she has not spoken to middle sister in several months. 02/23/2025 Mild major depression, single episode (ICD-10 - F32.0) 44year old female seen today for initial assessment to start indiividual psychotherapy. Reported that she has seen Roselia and Gumaro for medication to treat depression and anxiety symptoms she has been experiencing for the past year or so. Denied hx of both but was started on an anti-dpressant by her PCP who referred her here for medication and therapy. Client shared that she has been estranged from bio father for the past year and mother is hospice care and not expected to live much longer. possibly 6 weeks. Noted that mother has been in facility due to suffering frm dementia. Stated that she has not been her best self and has found self being short and inpatient with 7 year old son due to problems with father (his new girlfriend and one sister). Client added that father has refused to speak with her without the presence of an compliance attorney. Client born and grew up [place], [place] and described her childhood as really good. Stated that she was a happy child growing up. 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 She is one of three, two sisters. Added that she has not spoken to middle sister in several months. 04/03/2025 Major depressive disorder, recurrent, in full remission (ICD-10 - F33.42) 04/03/2025 Generalized anxiety disorder (ICD-10 - F41.1) 04/25/2025 Major depressive disorder, recurrent, in full remission (ICD-10 - F33.42) 04/25/2025 Major depressive disorder, recurrent, in full remission (ICD-10 - F33.42) 04/29/2025 Major depressive disorder, recurrent, in full remission (ICD-10 - F33.42) 05/06/2025 Major depressive disorder, recurrent, mild (ICD-10 - F33.0) 05/06/2025 Generalized anxiety disorder (ICD-10 - F41.1) 07/18/2024 Current mild episode of major depressive disorder without prior episode (ICD-10 - F32.0) - Mental Status Examination: - Depression rated at 4/10. - Anxiety rated at 0/10. - No thoughts of suicide or self-harm reported. - Sleeps approximately 7-8 hours per night. 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 - No delusions, paranoia, or hallucinations reported. - She reports feeling less sad, less self-conscious about appearance, and experiencing fewer mood swings. - She reports not feeling easily angered as in the past. - She describes feeling goal-oriented but having difficulty with long-term planning. - She reports racing thoughts at night, improved with magnesium glycinate. - She notes taking longer to get out of bed in the morning. 08/01/2024 Major depressive disorder, single episode, mild (ICD-10 - F32.0) 44 year old female seen today for initial assessment to start indiividual psychotherapy. Reported that she has seen Shikha for medication to treat depression and anxiety symptoms she has been experiencing for the past year or so. Denied hx of both but was started on an anti-dpressant by her PCP who referred her here for medication and therapy. Client shared that she has been estranged from bio father for the past year and mother is hospice care and not expected to live much longer. possibly 6 weeks. Noted that mother has been in facility due to suffering frm dementia. Stated that she has not been her best self and has found self being short and inpatient with 7 year old son due to problems with father (his new girlfriend and one sister). Client added that father has refused to speak with her without the presence of an compliance attorney. Client born and grew up [place], [place] and described her childhood as really good. Stated that she was a happy child growing up. 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 She is one of three, two sisters. Added that she has not spoken to middle sister in several months. 08/01/2024 Anxiety disorder, unspecified type (ICD-10 - F41.9) 44 year old female seen today for initial assessment to start indiividual psychotherapy. Reported that she has seen Shikha for medication to treat depression and anxiety symptoms she has been experiencing for the past year or so. Denied hx of both but was started on an anti-dpressant by her PCP who referred her here for medication and therapy. Client shared that she has been estranged from bio father for the past year and mother is hospice care and not expected to live much longer. possibly 6 weeks. Noted that mother has been in facility due to suffering frm dementia. Stated that she has not been her best self and has found self being short and inpatient with 7 year old son due to problems with father (his new girlfriend and one sister). Client added that father has refused to speak with her without the presence of an compliance attorney. Client born and grew up [place], [place] and described her childhood as really good. Stated that she was a happy child growing up. 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 She is one of three, two sisters. Added that she has not spoken to middle sister in several months. 08/11/2024 Major depressive disorder, single episode, mild (ICD-10 - F32.0) 44 year old female seen today for initial assessment to start indiividual psychotherapy. Reported that she has seen Shikha for medication to treat depression and anxiety symptoms she has been experiencing for the past year or so. Denied hx of both but was started on an anti-dpressant by her PCP who referred her here for medication and therapy. Client shared that she has been estranged from bio father for the past year and mother is hospice care and not expected to live much longer. possibly 6 weeks. Noted that mother has been in facility due to suffering frm dementia. Stated that she has not been her best self and has found self being short and inpatient with 7 year old son due to problems with father (his new girlfriend and one sister). Client added that father has refused to speak with her without the presence of an compliance attorney. Client born and grew up [place], [place] and described her childhood as really good. Stated that she was a happy child growing up. 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 She is one of three, two sisters. Added that she has not spoken to middle sister in several months. 08/11/2024 Anxiety disorder, unspecified (ICD-10 - F41.9) 44 year old female seen today for initial assessment to start indiividual psychotherapy. Reported that she has seen Shikha for medication to treat depression and anxiety symptoms she has been experiencing for the past year or so. Denied hx of both but was started on an anti-dpressant by her PCP who referred her here for medication and therapy. Client shared that she has been estranged from bio father for the past year and mother is hospice care and not expected to live much longer. possibly 6 weeks. Noted that mother has been in facility due to suffering frm dementia. Stated that she has not been her best self and has found self being short and inpatient with 7 year old son due to problems with father (his new girlfriend and one sister). Client added that father has refused to speak with her without the presence of an compliance attorney. Client born and grew up [place], [place] and described her childhood as really good. Stated that she was a happy child growing up. 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 She is one of three, two sisters. Added that she has not spoken to middle sister in several months. 08/11/2024 Current mild episode of major depressive disorder without prior episode (ICD-10 - F32.0) 08/28/2024 Anxiety disorder, unspecified type (ICD-10 - F41.9) 44 year old female seen today for initial assessment to start indiividual psychotherapy. Reported that she has seen Shikha for medication to treat depression and anxiety symptoms she has been experiencing for the past year or so. Denied hx of both but was started on an anti-dpressant by her PCP who referred her here for medication and therapy. Client shared that she has been estranged from bio father for the past year and mother is hospice care and not expected to live much longer. possibly 6 weeks. Noted that mother has been in facility due to suffering frm dementia. Stated that she has not been her best self and has found self being short and inpatient with 7 year old son due to problems with father (his new girlfriend and one sister). Client added that father has refused to speak with her without the presence of an compliance attorney. Client born and grew up [place], [place] and described her childhood as really good. Stated that she was a happy child growing up. 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 She is one of three, two sisters. Added that she has not spoken to middle sister in several months. 08/28/2024 Current mild episode of major depressive disorder without prior episode (ICD-10 - F32.0) 44 year old female seen today for initial assessment to start indiividual psychotherapy. Reported that she has seen Shikha for medication to treat depression and anxiety symptoms she has been experiencing for the past year or so. Denied hx of both but was started on an anti-dpressant by her PCP who referred her here for medication and therapy. Client shared that she has been estranged from bio father for the past year and mother is hospice care and not expected to live much longer. possibly 6 weeks. Noted that mother has been in facility due to suffering frm dementia. Stated that she has not been her best self and has found self being short and inpatient with 7 year old son due to problems with father (his new girlfriend and one sister). Client added that father has refused to speak with her without the presence of an compliance attorney. Client born and grew up [place], [place] and described her childhood as really good. Stated that she was a happy child growing up. 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 She is one of three, two sisters. Added that she has not spoken to middle sister in several months. 09/11/2024 Anxiety disorder, unspecified (ICD-10 - F41.9) 44 year old female seen today for initial assessment to start indiividual psychotherapy. Reported that she has seen Shikha for medication to treat depression and anxiety symptoms she has been experiencing for the past year or so. Denied hx of both but was started on an anti-dpressant by her PCP who referred her here for medication and therapy. Client shared that she has been estranged from bio father for the past year and mother is hospice care and not expected to live much longer. possibly 6 weeks. Noted that mother has been in facility due to suffering frm dementia. Stated that she has not been her best self and has found self being short and inpatient with 7 year old son due to problems with father (his new girlfriend and one sister). Client added that father has refused to speak with her without the presence of an compliance attorney. Client born and grew up [place], [place] and described her childhood as really good. Stated that she was a happy child growing up. 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 She is one of three, two sisters. Added that she has not spoken to middle sister in several months. 09/11/2024 Current mild episode of major depressive disorder without prior episode (ICD-10 - F32.0) 44 year old female seen today for initial assessment to start indiividual psychotherapy. Reported that she has seen Shikha for medication to treat depression and anxiety symptoms she has been experiencing for the past year or so. Denied hx of both but was started on an anti-dpressant by her PCP who referred her here for medication and therapy. Client shared that she has been estranged from bio father for the past year and mother is hospice care and not expected to live much longer. possibly 6 weeks. Noted that mother has been in facility due to suffering frm dementia. Stated that she has not been her best self and has found self being short and inpatient with 7 year old son due to problems with father (his new girlfriend and one sister). Client added that father has refused to speak with her without the presence of an compliance attorney. Client born and grew up [place], [place] and described her childhood as really good. Stated that she was a happy child growing up. 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 She is one of three, two sisters. Added that she has not spoken to middle sister in several months. 09/25/2024 Anxiety disorder, unspecified type (ICD-10 - F41.9) 44year old female seen today for initial assessment to start indiividual psychotherapy. Reported that she has seen Shikha for medication to treat depression and anxiety symptoms she has been experiencing for the past year or so. Denied hx of both but was started on an anti-dpressant by her PCP who referred her here for medication and therapy. Client shared that she has been estranged from bio father for the past year and mother is hospice care and not expected to live much longer. possibly 6 weeks. Noted that mother has been in facility due to suffering frm dementia. Stated that she has not been her best self and has found self being short and inpatient with 7 year old son due to problems with father (his new girlfriend and one sister). Client added that father has refused to speak with her without the presence of an compliance attorney. Client born and grew up [place], [place] and described her childhood as really good. Stated that she was a happy child growing up. 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 She is one of three, two sisters. Added that she has not spoken to middle sister in several months. 09/25/2024 Current mild episode of major depressive disorder without prior episode (ICD-10 - F32.0) 44year old female seen today for initial assessment to start indiividual psychotherapy. Reported that she has seen Shikha for medication to treat depression and anxiety symptoms she has been experiencing for the past year or so. Denied hx of both but was started on an anti-dpressant by her PCP who referred her here for medication and therapy. Client shared that she has been estranged from bio father for the past year and mother is hospice care and not expected to live much longer. possibly 6 weeks. Noted that mother has been in facility due to suffering frm dementia. Stated that she has not been her best self and has found self being short and inpatient with 7 year old son due to problems with father (his new girlfriend and one sister). Client added that father has refused to speak with her without the presence of an compliance attorney. Client born and grew up [place], [place] and described her childhood as really good. Stated that she was a happy child growing up. 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 She is one of three, two sisters. Added that she has not spoken to middle sister in several months. 10/14/2024 Anxiety disorder, unspecified type (ICD-10 - F41.9) 44year old female seen today for initial assessment to start indiividual psychotherapy. Reported that she has seen Shikha for medication to treat depression and anxiety symptoms she has been experiencing for the past year or so. Denied hx of both but was started on an anti-dpressant by her PCP who referred her here for medication and therapy. Client shared that she has been estranged from bio father for the past year and mother is hospice care and not expected to live much longer. possibly 6 weeks. Noted that mother has been in facility due to suffering frm dementia. Stated that she has not been her best self and has found self being short and inpatient with 7 year old son due to problems with father (his new girlfriend and one sister). Client added that father has refused to speak with her without the presence of an compliance attorney. Client born and grew up [place], [place] and described her childhood as really good. Stated that she was a happy child growing up. 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 She is one of three, two sisters. Added that she has not spoken to middle sister in several months. 10/14/2024 Mild major depression, single episode (ICD-10 - F32.0) 44year old female seen today for initial assessment to start indiividual psychotherapy. Reported that she has seen Shikha for medication to treat depression and anxiety symptoms she has been experiencing for the past year or so. Denied hx of both but was started on an anti-dpressant by her PCP who referred her here for medication and therapy. Client shared that she has been estranged from bio father for the past year and mother is hospice care and not expected to live much longer. possibly 6 weeks. Noted that mother has been in facility due to suffering frm dementia. Stated that she has not been her best self and has found self being short and inpatient with 7 year old son due to problems with father (his new girlfriend and one sister). Client added that father has refused to speak with her without the presence of an compliance attorney. Client born and grew up [place], [place] and described her childhood as really good. Stated that she was a happy child growing up. 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 She is one of three, two sisters. Added that she has not spoken to middle sister in several months. 01/01/2025 Generalized anxiety disorder (ICD-10 - F41.1) 44year old female seen today for initial assessment to start indiividual psychotherapy. Reported that she has seen Shikha for medication to treat depression and anxiety symptoms she has been experiencing for the past year or so. Denied hx of both but was started on an anti-dpressant by her PCP who referred her here for medication and therapy. Client shared that she has been estranged from bio father for the past year and mother is hospice care and not expected to live much longer. possibly 6 weeks. Noted that mother has been in facility due to suffering frm dementia. Stated that she has not been her best self and has found self being short and inpatient with 7 year old son due to problems with father (his new girlfriend and one sister). Client added that father has refused to speak with her without the presence of an compliance attorney. Client born and grew up [place], [place] and described her childhood as really good. Stated that she was a happy child growing up. 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 She is one of three, two sisters. Added that she has not spoken to middle sister in several months. 01/01/2025 Mild major depression, single episode (ICD-10 - F32.0) 44year old female seen today for initial assessment to start indiividual psychotherapy. Reported that she has seen Shikha for medication to treat depression and anxiety symptoms she has been experiencing for the past year or so. Denied hx of both but was started on an anti-dpressant by her PCP who referred her here for medication and therapy. Client shared that she has been estranged from bio father for the past year and mother is hospice care and not expected to live much longer. possibly 6 weeks. Noted that mother has been in facility due to suffering frm dementia. Stated that she has not been her best self and has found self being short and inpatient with 7 year old son due to problems with father (his new girlfriend and one sister). Client added that father has refused to speak with her without the presence of an compliance attorney. Client born and grew up [place], [place] and described her childhood as really good. Stated that she was a happy child growing up. 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 She is one of three, two sisters. Added that she has not spoken to middle sister in several months. 01/05/2025 Generalized anxiety disorder (ICD-10 - F41.1) Depression and Anxiety - Stable Plan: - Continue citalopram 20 mg daily - Reassess at end of semester, discussed potential to decrease if she feels well at this time Insomnia - Currently sleeping well Plan: - Continue OTC magnesium - Practice good sleep hygiene - Schedule follow-up appointment in three months, sooner if concerns arise 02/23/2025 Generalized anxiety disorder (ICD-10 - F41.1) 44year old female seen today for initial assessment to start indiividual psychotherapy. Reported that she has seen Shikha for medication to treat depression and anxiety symptoms she has been experiencing for the past year or so. Denied hx of both but was started on an anti-dpressant by her PCP who referred her here for medication and therapy. Client shared that she has been estranged from bio father for the past year and mother is hospice care and not expected to live much longer. possibly 6 weeks. Noted that mother has been in facility due to suffering frm dementia. Stated that she has not been her best self and has found self being short and inpatient with 7 year old son due to problems with father (his new girlfriend and one sister). Client added that father has refused to speak with her without the presence of an compliance attorney. Client born and grew up [place], [place] and described her childhood as really good. Stated that she was a happy child growing up. 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 She is one of three, two sisters. Added that she has not spoken to middle sister in several months. 02/04/2025 Generalized anxiety disorder (ICD-10 - F41.1) 44year old female seen today for initial assessment to start indiividual psychotherapy. Reported that she has seen Shikha for medication to treat depression and anxiety symptoms she has been experiencing for the past year or so. Denied hx of both but was started on an anti-dpressant by her PCP who referred her here for medication and therapy. Client shared that she has been estranged from bio father for the past year and mother is hospice care and not expected to live much longer. possibly 6 weeks. Noted that mother has been in facility due to suffering frm dementia. Stated that she has not been her best self and has found self being short and inpatient with 7 year old son due to problems with father (his new girlfriend and one sister). Client added that father has refused to speak with her without the presence of an compliance attorney. Client born and grew up [place], [place] and described her childhood as really good. Stated that she was a happy child growing up. 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 She is one of three, two sisters. Added that she has not spoken to [facility] sister in several months. 07/18/2024 Chronic insomnia (ICD-10 - F51.04) - Mental Status Examination: - Depression rated at 4/10. - Anxiety rated at 0/10. - No thoughts of suicide or self-harm reported. - Sleeps approximately 7-8 hours per night. 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 - No delusions, paranoia, or hallucinations reported. - She reports feeling less sad, less self-conscious about appearance, and experiencing fewer mood swings. - She reports not feeling easily angered as in the past. - She describes feeling goal-oriented but having difficulty with long-term planning. - She reports racing thoughts at night, improved with magnesium glycinate. - She notes taking longer to get out of bed in the morning. 07/04/2024 Chronic insomnia (ICD-10 - F51.04) treat mood/anxiety practice good sleep hygiene-given handout 04/03/2025 Chronic insomnia (ICD-10 - F51.04) 01/05/2025 Chronic insomnia (ICD-10 - F51.04) Depression and Anxiety - Stable Plan: - Continue citalopram 20 mg daily - Reassess at end of semester, discussed potential to decrease if she feels well at this time Insomnia - Currently sleeping well Plan: - Continue OTC magnesium - Practice good sleep hygiene - Schedule follow-up appointment in three months, sooner if concerns arise 05/06/2025 Chronic insomnia (ICD-10 - F51.04) 05/06/2025 Encounter for screening for depression (ICD-10 - Z13.31) 04/03/2025 Encounter for screening for cardiovascular disorders (ICD-10 - Z13.6) 05/06/2025 Encounter for screening for cardiovascular disorders (ICD-10 - Z13.6) 01/05/2025 Encounter for screening for cardiovascular disorders (ICD-10 - Z13.6) Depression and Anxiety - Stable Plan: - Continue citalopram 20 mg daily - Reassess at end of semester, discussed potential to decrease if she feels well at this time Insomnia - Currently sleeping well Plan: - Continue OTC magnesium - Practice good sleep hygiene - Schedule follow-up appointment in three months, sooner if concerns arise 04/03/2025 Negative depression screening (ICD-10 - Z13.31) 07/04/2024 Other 07/18/2024 Other 1. Major Depressive Disorder - Citalopram 20mg daily - She reports mood improvement, depression rating 4/10 - Plan: a. Continue current medication regimen b. Monitor for symptom worsening or side effects c. Consider dose adjustment if needed after 6 weeks - She reports less mood swings and decreased self-conscious ness - She notes difficulty with goal-setting and long-term planning 2. Anxiety - She reports no current anxiety symptoms (0/10) - Plan: a. Continue monitoring for changes in anxiety levels 3. Sleep Disturbance -Magnesium glycinate - She reports improved sleep quality, getting 7-8 hours per night - Plan: a. Continue current supplement regimen b. Monitor for changes in sleep patterns - She notes longer time to get out of bed in the morning 4. Therapy Referral - She interested in seeing a therapist - Plan: a. Check with front end driver staff regarding referral and wait times b. Schedule therapy appointment when available, possibly in 3 months 5. Medication Refills and Prescriber Change - She has 30-day supply of citalopram - Plan: a. Discuss with PCP Jabari Forbes about transferring prescriber to [facility] b. contact office or use ahmet for future refills 6. Follow-up - Plan: a. Schedule follow-up with [facility] or Gumaro Figueredo, NATLAIIA, PMHNP as needed b. Encourage her to reach out via messaging or ahmet if concerns/sympt om changes c. She to contact if depressive symptoms return for potential dose adjustment 7. Side Effects - She reports manageable diarrhea - No other significant side effects noted MDD-single, IRENE, chronic insomnia improvement noted on current medication discuss dx and tx consideration, just started SSRI, and seems to be helping. cont at current dose. review r/b/se. Sleep discuss medication options, melatonin, magnesium, calm aid, or wait on SSRI effect. She may try a natural option discussed, wants to avoid a script currently, reported improved sleep with Magnesium. - Mental Status Examination: - Depression rated at 4/10. - Anxiety rated at 0/10. - No thoughts of suicide or self-harm reported. - Sleeps approximately 7-8 hours per night. 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 - No delusions, paranoia, or hallucinations reported. - She reports feeling less sad, less self-conscious about appearance, and experiencing fewer mood swings. - She reports not feeling easily angered as in the past. - She describes feeling goal-oriented but having difficulty with long-term planning. - She reports racing thoughts at night, improved with magnesium glycinate. - She notes taking longer to get out of bed in the morning. 08/11/2024 Other Client participated in individual psychotherapy(CB T/Supportive) related to their hx of depression and anxiety. Based on today's session continued pyschotherapy is recommended with no changes to treatment plan. Client presented to session well groomed and fully oriented with no risk of harm to self or others. Client verbal engaged and tearful through out session. Reported upon presentation that she has been doing all right since last seen on 08.01.2024. Noted that she had an interesting past week due to work related stress dealing with a co-worker and her cabrera. Session addressed and examined beliefs and relationship she has had with parents as they relate to her depression and anxiety. 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 Admitted that she has struggled accepting that she is no longer in the role due to mother's decling cognitions and father's refusal to speak to her without legal representation being present. Client receptive to session feedback and was encouraged to read Leo Gee's Family Secrets; What You Don't Know Can Hurt You. Next session in two weeks. 44 year old female seen today for initial assessment to start indiividual psychotherapy. Reported that she has seen Shikha for medication to treat depression and anxiety symptoms she has been experiencing for the past year or so. Denied hx of both but was started on an anti-dpressant by her PCP who referred her here for medication and therapy. Client shared that she has been estranged from bio father for the past year and mother is hospice care and not expected to live much longer. possibly 6 weeks. Noted that mother has been in facility due to suffering frm dementia. Stated that she has not been her best self and has found self being short and inpatient with 7 year old son due to problems with father (his new girlfriend and one sister). Client added that father has refused to speak with her without the presence of an compliance attorney. Client born and grew up [place], [place] and described her childhood as really good. Stated that she was a happy child growing up. 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 She is one of three, two sisters. Added that she has not spoken to middle sister in several months. 08/28/2024 Other Client participated in individual psychotherapy(CB T/Supportive) related to their hx of depression(singl e episode) and mild anxiety. Based on today's session continued psychotherapy is recommended with no changes in treatment plan. Client presented to session well groomed and fully oriented with no risk of harm to self or others. Client verbal engaged and tearful fhrough out session. Reported upon presentation that she has been doing all right since last seen on 08.11.2024. Requested to talk about having lost it on two separate occasions while at work. Client vented about not feeling supported(by administration) in her position and has considered leaving current position inspite of really liking what she does. Client provided supportive therapy as well as challenging beliefs about expectations she has of others in the work place. Client receptive to session feedback. Next session in two weeks. 44 year old female seen today for initial assessment to start indiividual psychotherapy. Reported that she has seen Shikha for medication to treat depression and anxiety symptoms she has been experiencing for the past year or so. Denied hx of both but was started on an anti-dpressant by her PCP who referred her here for medication and therapy. Client shared that she has been estranged from bio father for the past year and mother is hospice care and not expected to live much longer. possibly 6 weeks. Noted that mother has been in facility due to suffering frm dementia. Stated that she has not been her best self and has found self being short and inpatient with 7 year old son due to problems with father (his new girlfriend and one sister). Client added that father has refused to speak with her without the presence of an compliance attorney. Client born and grew up [place], [place] and described her childhood as really good. Stated that she was a happy child growing up. 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 She is one of three, two sisters. Added that she has not spoken to middle sister in several months. 09/11/2024 Other Client participated in individual psychotherapy (CBT/Supportive) related to her hx of anxiety and depression. Based on today's session continued psychotherapy is recommended with no changes to treatment plan. Client presented to [facility] well groomed and fully oriented with no risk of harm to self or others. Client verbal and engaged through out session becoming tearful at one point during session. Reported upon presentation that she has been doing all right since last seen. Noted that she had a good weekend but had a big argument with regarding her job and him wanting to move. Client spoke at length about how she has been feeling really conflicted. Explained that she has been thinking about applying for a chair position at [employer] in [place]. Stated that is excited at the possibility of moving. Client provided supportive therapy with encouragement to focus on what is best for her. Next session in two weeks. 44 year old female seen today for initial assessment to start indiividual psychotherapy. Reported that she has seen Shikha for medication to treat depression and anxiety symptoms she has been experiencing for the past year or so. Denied hx of both but was started on an anti-dpressant by her PCP who referred her here for medication and therapy. Client shared that she has been estranged from bio father for the past year and mother is hospice care and not expected to live much longer. possibly 6 weeks. Noted that mother has been in facility due to suffering frm dementia. Stated that she has not been her best self and has found self being short and inpatient with 7 year old son due to problems with father (his new girlfriend and one sister). Client added that father has refused to speak with her without the presence of an compliance attorney. Client born and grew up [place], [place] and described her childhood as really good. Stated that she was a happy child growing up. 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 She is one of three, two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
--- OUTSIDE RECORDS SUMMARY | 2025-05-27 07:19 | XMS_ITS | Clinical Summary ---
Author Organization [facility] Address [address] [place] [address] Care Team Providers Care Property Management Coordinator Name Role Phone Rick Mcallister MD Primary Care Provider Unavail able Source Comments [facility],non-owned Affiliates and Associated Physician Practices is amultiple site organization consisting of ambulatory clinics and hospital sitesin [place], [place], [place] and [place]. This disclosure is being madepursuant to the Care Everywhere program and may not contain all information available regarding this patient. Last updated 18.[facility] Allergies Active Allergy Reactions Criticality Noted Date Comments Tree Nuts Anaphylaxis High 11/10/2016 pistachio Medications * Be aware that medications may not be up to date on this document. Alwaysverify current medications with the patient. Rsewthpd-Gfo-Yn -FA ( VITAMIN WITH IRON) tablet Take 1 Tab by mouth once daily Active oxyCODONE-aceta minophen (PERCOCET) 5-325 MG tablet Take 1-2 Tabs by mouth every 4 hours as needed for Pain 30 Tab 11/14/2016 Active ibuprofen (MOTRIN) 600 MG tablet Take 1 Tab by mouth every 6 hours as needed for Pain 60 Tab 2 11/14/2016 Active docusate sodium (COLACE) 100 MG capsule Take 1 Cap by mouth 2 times daily 60 Cap 2 11/14/2016 Active polyethylene glycol 3350 (MIRALAX) packet Take by mouth once daily 25 Packet 1 11/14/2016 Active ferrous sulfate 325 (65 FE) MG tablet Take 1 Tab by mouth 2 times daily with morning and evening meal 60 Tab 11/14/2016 Active NIFEdipine CR 24hr (ADALAT CC) 30 MG tablet Take 1 Tab by mouth 2 times daily Take on an empty stomach. 30 Tab 5 11/14/2016 Active Active Problems Problem Noted Date Diagnosed Date AMA (advanced maternal age) multigravida 35+ Supervision of high-risk 06/05/2016 Hypertension in , preeclampsia, severe, delivered Placental abruption Family History Medical History Relation Name Comments Diabetes Father Hypertension Father Dementia Maternal Grandmother Hypercholesterolemia Mother Hypertension Mother Diabetes Paternal Grandmother Relation Name Status Comments Father Maternal Grandmother Mother Paternal Grandmother Social History Tobacco Use Types Packs/Day Years Used Date Smoking Tobacco: Never Smokeless Tobacco: Never Alcohol Use Standard Drinks/Week Comments No 0 (1 standard drink = 0.6 oz pur e alcohol) Comments No Sex and Gender Information Value Date Recorded Sex Assigned at Not on file Legal Sex Female 11:24 AM CDT Gender Identity Not on file Sexual Orientation Not on file Last Filed Vital Signs Vital Sign Reading Time Taken Comments Blood Pressure 118/80 11/24/2016 10:57 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 Pulse 84 11/14/2016 2:15 PM 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 Temperature 36.7 C (98 F) 11/14/2016 8:30 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 Respiratory Rate 20 11/14/2016 2:15 PM 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 Oxygen Saturation 98% 11/13/2016 11:15 PM 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 Inhaled Oxygen Concentration - - Weight 76.7 kg (169 lb) 11/24/2016 10:57 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 Height 175.3 cm (5' 9) 11/24/2016 10:57 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 Body Mass Index 24.96 11/24/2016 10:57 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 Plan of Treatment Health Maintenance Due Date Last Done Comments LIPID TESTING 1980 MAMMOGRAM 1980 HIV SCREENING 1995 HEPATITIS C SCREENING 06/11/1998 DTAP/TDAP/TD VACCINES (1 - Tdap) 1999 HEPATITIS B VACCINE (1 of 3 - 19+ 3-dose series) 1999 COVID-19 VACCINE ( - 2023-2 5 season) 2024 DEPRESSION SCREENING 11/19/2024 INFLUENZA VACCINE (Season Ended) 2025 ZOSTER VACCINE (1 of 2) 2030 HIB VACCINE Aged Out No longer eligi ble based on patient's age to complete this topic HPV VACCINE Aged Out No longer eligi ble based on patient's age to complete this topic MENINGOCOCCAL (Group B) VACC INE SHARED DECISION-MAKING Aged Out No longer eligibl e based on patient's age to complete this topic MENINGOCOCCAL GROUPS A/C/Y/W VACCINE Aged Out No longer eligible b ased on patient's age to complete this topic PNEUMOCOCCAL VACCINE Aged Out No long er eligible based on patient's age to complete this topic Insurance [employer] Advance Directives * Full Code (Latest Code Status on File) Date Activated Date Inactivated Comments 11/11/2016 9:56 PM 11/14/2016 4:25 PM * Full Code Date Activated Date Inactivated Comments 11/10/2016 4:39 PM 11/11/2016 9:56 PM Care Teams Property Management Coordinator Relationship Specialty Start Date End Date Rick Mcallister MD PCP - General Internal Medicine 06/12/16
[2025-05-27 08:00] LABS: Hematocrit 38.8 % (37.0-47.0); Hemoglobin 12.7 g/dL (12.0-15.0); Mean Corpuscular HGB Conc 32.7 g/dl (32-36); Mean Corpuscular Hemoglobin 29.5 pg (26-34); Mean Corpuscular Volume 90.0 fl (80-100); Platelet Count Result 265 k/mm3 (150-375); Red Blood Count 4.31 M/mm3 (4.2-5.4); White Blood Count 4.3 K/mm3 (4.5-10.0)
[2025-05-27 09:41] LABS: Alanine Aminotransferase 27 U/L (6-35); Albumin Level 4.0 g/dL (3.5-5.1); Alkaline Phosphatase 45 U/L (38-126); Anion Gap 8 mmol/L (4-12); Aspartate Amino Transferase 34 U/L (14-36); Bilirubin,Total 0.2 mg/dL (0.2-1.3); Blood Urea Nitrogen 6 mg/dL (7-17); Calcium 8.9 mg/dL (8.4-10.2); Carbon Dioxide 24 mmol/L (22-30); Chloride 105 mmol/L (98-107); Cholesterol 163 mg/dL (0-200); Estimated Glomerular Filt Rate > 60; Glucose 92 mg/dL (65-110); HDL Direct 64 mg/dL; Potassium 4.1 mmol/L (3.4-5.0); Sodium 137 mmol/L (137-145); Total Protein 6.7 g/dL (6.3-8.2); Triglycerides 182 mg/dL (<150)
[2025-05-27 10:12] LABS: Thyroid Stimulating Hormone 1.530 uIU/mL (0.465-4.680)
== END 2025-05-27 07:16 | disposition home or self-care (01) ==
LOC: ANHLAB 07:16
PROVIDERS: PCP Nurse Practitioner; Visit Provider Nurse Practitioner
DX: Z00.00 Encounter for general adult medical examination without abnormal findings (principal)
CPT/HCPCS: 36415; 80053; 80061; 84443; 85027